=== PATIENT | female | born 1960 | race Caucasian/White ===

== ENCOUNTER 2021-08-24 04:37 | Day surgery (SDC) | payer OTHER ==
[2021-08-20 12:39] VITALS: BMI 30.8
[2021-08-24 08:31] VITALS: TEMP 97.8
[2021-08-24 09:09] VITALS: BP 126/75; PULSE 64
== END 2021-08-24 09:36 | disposition home or self-care (01) ==
LOC: JASU-ENDO 04:37
PROVIDERS: ATTEND Internal Medicine Gastroenterology
PROC: 0DBL8ZX Excision of Transverse Colon, Via Natural or Artificial Opening Endoscopic, Diagnostic (ICD-10-PCS; 2021-08-24)
PROC: 0DBP8ZX Excision of Rectum, Via Natural or Artificial Opening Endoscopic, Diagnostic (ICD-10-PCS; principal; 2021-08-24 08:00)
DX: Z12.11 Encounter for screening for malignant neoplasm of colon (principal); D12.3 Benign neoplasm of transverse colon; K62.0 Anal polyp
CPT/HCPCS: 88305-TC